=== PATIENT | female | born 1945 | race Caucasian/White ===

== ENCOUNTER 2017-03-04 13:20 | Inpatient (IN) | payer OTHER ==
[~2017-03-04] VITALS: Ht 167.6 cm; Wt 67.2 kg
[~2017-03-04 13:20] MED LIST: MULTIVITAMIN1 EAC2 PO
[2017-03-04 16:05] LABS: HEMATOCRIT 41.8 % (36.0-46.0); MCH 30.7 PG (29.0-34.0); MCHC 33.7 G/DL (30.0-36.0); MCV 90.9 FL (83-99); MEAN PLAT.VOLUME 9.6 uM^3 (9.5-12.4); PLATELET COUNT 272 K/uL (156-360); RBC DIS.WIDTH-CV 12.4 % (11.8-14.6); RBC DIS.WIDTH-SD 41.2 % (39-53)
[2017-03-04 16:14] LABS: CHLORIDE 104 mEq/L (99-109); POTASSIUM 3.9 mEq/L (3.7-5.4); SODIUM 138 mEq/L (136-147)
[2017-03-04 16:15] LABS: ADD MIUA? YES; BILIRUBIN NEGATIVE; BLOOD NEGATIVE; COLOR YELLOW ((YELLOW)); GLUCOSE (STRIP) NEGATIVE; KETONES NEGATIVE; LEUKOCYTES NEGATIVE; NITRITE NEGATIVE; PROTEIN (STRIP) NEGATIVE; SPECIFIC GRAVITY 1.021 (1.000-1.030); UROBILINOGEN 0.2 MG/DL (0.2-1.0)
[2017-03-04 16:16] LABS: GLUCOSE 114 mg/dL (70-99)
[2017-03-04 16:17] LABS: ANION GAP 9 MEQ/L (2-14)
[2017-03-04 16:18] LABS: TOTAL BILIRUBIN 0.5 mg/dL (0.0-1.0)
[2017-03-04 16:20] LABS: ALKALINE PHOSPHATASE 64 IU/L (3-129); GFR ESTIMATE (CALCULATED) > 59 mL/min/
[2017-03-04 16:21] LABS: UREA NITROGEN (BUN) 17 mg/dL (9-23)
[2017-03-04 16:24] LABS: TROP-I INTERPRETATION NEGATIVE; TROPONIN-I < 0.01 ng/mL (0.0-0.30)
[2017-03-04 17:16] LABS: BACTERIA NONE SEEN /HPF; EPITHELIAL CELLS RARE /HPF; MUCUS TRACE /LPF; RED BLOOD CELLS 0-5 /HPF (0-5); UCUL ADDED? NO; WHITE BLOOD CELLS NONE SEEN /HPF (0-5)
[2017-03-04] MEDS ORDERED: DUONEB 2.5-0.5 M3 ML AEROSOL (17:44)
[2017-03-04] MEDS ORDERED: FLONASE16 G1 BOTH NARES (17:45)
[2017-03-04] MEDS ORDERED: PROAIR RESPICL90 MCG IH (17:45)
[2017-03-04] MEDS ORDERED: ASTEPRO 0.15%30 ML BOTH NARES (17:45)
[2017-03-04 20:51] VITALS: BP 140/68
[2017-03-04 23:25] VITALS: BP 132/60
[2017-03-05 04:07] VITALS: BP 134/68
[2017-03-05 07:41] VITALS: BP 131/63
[2017-03-05 11:30] VITALS: BP 120/57
[2017-03-05 15:36] VITALS: BP 138/63
[2017-03-05 19:55] VITALS: BP 154/81
[2017-03-05 23:32] VITALS: BP 131/63
[2017-03-06 07:30] VITALS: BP 134/67
[2017-03-06 11:45] VITALS: BP 129/78
[2017-03-06 16:45] VITALS: BP 131/78
[2017-03-06 20:22] VITALS: BP 138/63
[2017-03-06 23:19] VITALS: BP 163/77
[2017-03-07 03:41] VITALS: BP 124/71
[2017-03-07 07:18] VITALS: BP 135/64
[2017-03-07 11:11] VITALS: BP 146/69
[2017-03-07 15:43] VITALS: BP 137/66
[2017-03-07 19:51] VITALS: BP 158/74
[2017-03-07 23:32] VITALS: BP 160/74
[2017-03-08 03:56] VITALS: BP 164/76
[2017-03-08 07:42] VITALS: BP 125/59
[2017-03-08] MEDS ORDERED: NORCO 5/3251 TABLET PO (09:14)
[2017-03-08] MEDS ORDERED: ZOFRAN4 MG PO (09:14)
[2017-03-08 11:33] VITALS: BP 130/61
[2017-03-08 15:06] VITALS: BP 133/79
== END 2017-03-08 17:43 | disposition home health service (06) | DRG 200 ==
LOC: EME 13:20 → 3EAST 18:19 → EDOF 18:19 → 3EAST 20:28
PROVIDERS: Nurse Practitioner Family
PROC: 0W9B30Z Drainage of Left Pleural Cavity with Drainage Device, Percutaneous Approach (ICD-10-PCS; principal; 2017-03-04)
DX: S27.0XXA Traumatic pneumothorax, initial encounter (principal); S00.01XA Abrasion of scalp, initial encounter; S22.42XA Multiple fractures of ribs, left side, initial encounter for closed fracture; Y92.018 Other place in single-family (private) house as the place of occurrence of the external cause; W11.XXXA Fall on and from ladder, initial encounter; J98.11 Atelectasis; J45.909 Unspecified asthma, uncomplicated; K21.9 Gastro-esophageal reflux disease without esophagitis; M85.80 Other specified disorders of bone density and structure, unspecified site; M54.5 Low back pain
CPT/HCPCS: 70450; 71010; 71020; 71260; 72070; 72125; 72128; 72129; 72131; 72132; 74177; 80053; 81003; 84484; 85027; 93005; 99202; 99281; 99285; J1170; J1650; J2060; J2405; J3010